=== PATIENT | female | born 1980 | race Caucasian/White ===

== ENCOUNTER → 2017-01-04 | Outpatient (CLI) | payer OTHER ==
[~2017-01-04] MED LIST: BCP TD; CIPRO 500MG TA500 MG PO; CLARITIN 1010 MG/TAB PO; GENTLE EXPRESSI1 CRE TP; LORTAB 5/500 501 TAB PO; MOTRIN 600600 MG/TAB PO; PERCOCET 325 MG1 TA2 PO; PRENATAL1 TA1 PO; PREPARATION H30 GM; PYRIDIUM 100MG100 MG PO; SENOKOT S 50 MG1 TAB PO; ZOLOFT 100MG100 MG PO; ZOLOFT100 MG PO
== END ==
LOC: MC.RAD 08:15
DX: N64.4 Mastodynia (principal)

== ENCOUNTER 2017-06-15 08:38 | Day surgery (SDC) | payer OTHER ==
[~2017-06-15] VITALS: Ht 175.3 cm; Wt 100.2 kg
[2017-06-15] MEDS ORDERED: ZOLOFT 100MG100 MG PO (09:03)
[2017-06-15] MEDS ORDERED: MULTI VITAMINS1 TAB PO (09:04)
[2017-06-15] MEDS ORDERED: PROBIOTIC FORMU1 CAP PO (09:04)
[2017-06-15 09:07] VITALS: BP 116/74; PULSE 74; TEMP 98.6
[2017-06-15 09:51] VITALS: BP 104/61; PULSE 64; TEMP 98.7
[2017-06-15 10:00] VITALS: BP 102/57; PULSE 67
[2017-06-15 10:15] VITALS: BP 103/65; PULSE 52
[2017-06-15 10:30] VITALS: BP 110/65; PULSE 50
[2017-06-15 13:13] VITALS: BP 98/52; PULSE 58
== END 2017-06-15 10:50 | disposition home or self-care (01) ==
LOC: SDCO 08:38
DX: K92.1 Melena (principal); K62.89 Other specified diseases of anus and rectum; K64.1 Second degree hemorrhoids; K64.4 Residual hemorrhoidal skin tags; K59.09 Other constipation; Z80.0 Family history of malignant neoplasm of digestive organs
CPT/HCPCS: OP; J2250; J2405; J3010; J7030

== ENCOUNTER → 2017-08-03 | Outpatient (REF) ==
[~2017-08-03] MED LIST changes: +MULTI VITAMINS1 TAB PO; +PROBIOTIC FORMU1 CAP PO
[2017-08-03 09:23] LABS: THYROID STIMULATING HORMONE 1.22 uIU/mL (0.465-4.680)
== END ==
LOC: ZLAB.WCH 08:41
PROVIDERS: Family Medicine
DX: Z01.89 Encounter for other specified special examinations (principal)